=== PATIENT | male | born 1980 ===

== ENCOUNTER 2016-12-20 19:08 | Emergency (ER) | payer OTHER ==
[2016-12-20 19:16] VITALS: BMI 29.6
--- NOTE | 2016-12-20 20:02 | ED PDOC ---
Arrival/HPI - General Chief Complaint: Abdominal Pain Time Seen by Provider: 12/20/16 19:35 Historian: Patient - History of Present Illness Narrative History of Present Illness (Text): 12/20/16 23:57 36 yo M presents with 3 day h/o diarrhea with no abdominal pain or vomiting. States that his symptoms started after eating some "bad food." otherwise denies any fever, chills, urinary symptoms, melena, hematochezia, recent travel, sick contacts, recent antibiotic use, history of abdominal surgeries. Otherwise has no additional complaints. Patient states he is tolerating by mouth fluids well. Past Medical History - Provider Review Nursing Documentation Reviewed: Yes - Psychiatric Hx Substance Use: No - Surgical History Other/Comment: Right knee sx Family/Social History - Physician Review Nursing Documentation Reviewed: Yes Family/Social History: No Known Family HX Smoking Status: Current Some Days Smoker Hx Alcohol Use: Yes Frequency of alcohol use: Socially Hx Substance Use: No Allergies/Home Meds Allergies/Adverse Reactions: Allergies peanut Allergy (Verified 12/20/16 19:16) URTICARIA Home Medications: Home Meds Medication Instructions Recorded Confirmed No Known Home Med 12/20/16 12/20/16 Review of Systems - Review of Systems Constitutional: Normal. absent: Fatigue, Weight Change, Fevers Respiratory: Normal. absent: SOB, Cough, Sputum Cardiovascular: Normal. absent: Chest Pain, Palpitations, Edema Gastrointestinal: Normal, Diarrhea. absent: Abdominal Pain, Vomiting, Appetite Changes Musculoskeletal: Normal. absent: Arthralgias, Back Pain Skin: Normal. absent: Rash, Pruritis, Skin Lesions Physical Exam - Physical Exam Narrative Physical Exam (Text): 12/20/16 23:59 GENERAL APPEARANCE: Patient is awake, alert, oriented x 3, in no acute distress. SKIN: Warm, dry; (-) cyanosis. EYES: (-) conjunctival pallor, (-) scleral icterus. ENMT: Mucous membranes dry. NECK: (-) tenderness, (-) stiffness, (-) lymphadenopathy. CHEST AND RESPIRATORY: (-) rales, (-) rhonchi, (-) wheezes; breath sounds equal bilaterally. HEART AND CARDIOVASCULAR: (-) irregularity; (-) murmur, (-) gallop. ABDOMEN AND GI: (-) distention. Bowel sounds active; (-) tenderness, (-) guarding, (-) rebound, (-) palpable masses, (-) CVA tenderness. EXTREMITIES: (-) deformity, (-) edema, (+) distal pulses. NEURO AND PSYCH: Mental status as above; (-) focal findings. Vital Signs Temp Pulse Resp BP Pulse Ox 12/20/16 20:20 97.1 F L 74 20 124/85 100 12/20/16 19:13 98.8 F 118 H 18 129/86 98 Medical Decision Making ED Course and Treatment: 12/20/16 20:00 36 yo M presents with 3 day h/o diarrhea with no abdominal pain or vomiting. Physical exam is otherwise within normal. Patient advised to drink plenty of fluids, BRAT diet and to follow up with the clinic in 1-2 days without fail. Return to the emergency room at any time for any new or worsening symptoms. Patient states he fully agrees with and understands discharge instructions. States that he agrees with the plan and disposition. Verbalized and repeated discharge instructions and plan. I have given the patient opportunity to ask any additional questions. - PA / SENIOR INTERACTIVE DEVELOPER / Resident Statement MD/DO has reviewed & agrees with the documentation as recorded. Disposition/Present on Arrival - Present on Arrival Any Indicators Present on Arrival: No History of DVT/PE: No History of Uncontrolled Diabetes: No Urinary Catheter: No History of Decub. Ulcer: No History Surgical Site Infection Following: None - Disposition Have Diagnosis and Disposition been Completed?: Yes Diagnosis: Diarrhea Disposition: HOME/ ROUTINE Disposition Time: 20:01 Patient Plan: Discharge Condition: STABLE Discharge Instructions (ExitCare): Acute Diarrhea (ED) Print Language: BAHRAINI Additional Instructions: Thank you for letting us take care of you today. You were treated for diarrhea. The emergency medical care you received today was directed at your acute symptoms. It may take several days for your symptoms to resolve. Return to the Emergency Department if your symptoms worsen, do not improve, or if you have any other problems. Please contact your doctor in 2 days for re-evaluation and follow up / or call one of the physicians/clinics you have been referred to that are listed on the Patient Visit Information form that is included in your discharge packet. Bring any paperwork you were given at discharge with you along with any medications you are taking to your follow up visit. Our treatment cannot replace ongoing medical care by a primary care provider (PCP) outside of the emergency department. Thank you for allowing the [facility] team to be part of your care today. Referrals: [facility] Amelia Req, [Primary Care Provider] - Follow up with primary [facility] [Outside] - Follow up with primary Forms: WORK NOTE
[2016-12-20 20:22] VITALS: BP 124/85; PULSE 74; RESP 20; TEMP 97.1; O2SAT 100
== END 2016-12-20 20:24 | disposition home or self-care (01) ==
LOC: ED 19:08
DX: R19.7 Diarrhea, unspecified (principal); F17.210 Nicotine dependence, cigarettes, uncomplicated; Z91.010 Allergy to peanuts

== ENCOUNTER 2016-12-31 14:44 | Emergency (ER) | payer OTHER ==
--- NOTE | 2016-12-31 14:51 | ED PDOC ---
Arrival/HPI - General Historian: Patient - History of Present Illness Time/Duration: Prior to Arrival Symptom Onset: Sudden Symptom Course: Improving Activities at Onset: Other (getting ready for work) Context: Home - General Chief Complaint: Allergic Reaction Time Seen by Provider: 12/31/16 14:46 - History of Present Illness Narrative History of Present Illness (Text): 36 M with no PMH presents to ED with complaint of pruritis and hives. Patient stated that he woke up this morning and noticed that his head was itchy. He went to the bathroom and looked in the mirror when he noticed that he had swollen bumps all over his head. Patient stated that it was sudden onset. Patient had similar episode once before. He went to ED and was diagnosed with peanut allergy. Patient denies eating peanuts or anything new. He has not changed any soap, shampoo, deodorant, cologne, detergent, etc. Patient is under more stress than usual for work. He states the lesions have improved since onset. Denies fevers/chills, cp, sob, palpitations, swelling of mouth/throat, wheezing, cough, abd pain, n/v/d, numbness/tingling. (Martín Cox) Past Medical History - Provider Review Nursing Documentation Reviewed: Yes - Travel History Have you recently traveled outside [place] w/in the past 3 mons?: No - Past History Past History: No Previous - Psychiatric Hx Substance Use: No - Surgical History Other/Comment: Right knee sx Family/Social History - Physician Review Nursing Documentation Reviewed: Yes Family/Social History: Neoplasm/Cancer Smoking Status: Current Some Days Smoker Hx Alcohol Use: Yes Hx Substance Use: No Allergies/Home Meds Allergies/Adverse Reactions: Allergies peanut Allergy (Verified 12/31/16 14:52) URTICARIA Review of Systems - Review of Systems Constitutional: absent: Fatigue, Weight Change, Fevers, Night Sweats Eyes: absent: Vision Changes, Photophobia ENT: absent: Hearing Changes, Sore Throat Respiratory: absent: SOB, Wheezing Cardiovascular: absent: Chest Pain, Palpitations, Edema, Calf Pain, Syncope Gastrointestinal: absent: Abdominal Pain, Constipation, Nausea, Vomiting Genitourinary Male: absent: Dysuria, Frequency Musculoskeletal: absent: Arthralgias, Back Pain, Neck Pain, Myalgias Skin: Pruritis, Other (hives). absent: Laceration, Cellulitis Neurological: absent: Headache, Dizziness, Focal Weakness Endocrine: absent: Diaphoresis, Polyuria, Polydipsia Hemo/Lymphatic: absent: Adenopathy, Easy Bleeding, Easy Bruising Psychiatric: absent: Anxiety, Depression, Suicidal Ideation Physical Exam Vital Signs Reviewed: Yes Temperature: Afebrile Blood Pressure: Normal Pulse: Regular Respiratory Rate: Normal Appearance: Positive for: Well-Appearing, Non-Toxic, Uncomfortable Pain Distress: None Mental Status: Positive for: Alert and Oriented X 3 - Systems Exam Head: Present: Normocephalic, Other (hives) Pupils: Present: PERRL Conjunctiva: Present: Normal Mouth: Present: Moist Mucous Membranes Pharnyx: No: ERYTHEMA, EXUDATE, TONSILS ENLARGED, Peritonsilar Swelling, Uvular Deviation, Muffled/Hoarse Voice, Strider, Soft Palate/Uvular Edema Nose (External): Present: Atraumatic Nose (Internal): Present: Normal Inspection Neck: Present: Normal Range of Motion Respiratory/Chest: Present: Clear to Auscultation, Good Air Exchange. No: Respiratory Distress, Accessory Muscle Use, Wheezes, Rales, Rhonchi Cardiovascular: Present: Regular Rate and Rhythm, Normal S1, S2, Peripheal Pulses Present Abdomen: Present: Normal Bowel Sounds. No: Tenderness, Distention, Peritoneal Signs, Rebound, Guarding Back: No: CVA Tenderness Upper Extremity: Present: Normal ROM, NORMAL PULSES, Neurovascularly Intact, Capillary Refill < 2s Lower Extremity: Present: NORMAL PULSES, Normal ROM, Neurovascularly Intact, Capillary Refill < 2 s Neurological: Present: GCS=15, CN II-XII Intact, Speech Normal, Motor Func Grossly Intact, Normal Sensory Function Skin: Present: Warm, Dry, Other (hives on head) Lymphatic: No: Cervical Adenopathy, Axillary Adenopathy, Inguinal Adenopathy Psychiatric: Present: Alert, Oriented x 3, Normal Insight, Normal Concentration , Normal Affect, Normal Mood Vital Signs Temp Pulse Resp BP Pulse Ox 12/31/16 14:54 99.1 F 88 19 141/81 97 Medical Decision Making ED Course and Treatment: 12/31/16 16:26 Patient seen and examined with resident Came up with treatment and disposition plan with resident (Phil Mendez) Patient was evaluated and determined to have hives/uticaria. Symptoms localized to affected area. No evidence of airway swelling, wheezing, or systemic signs present. Patient given rx for pepcid, benadryl, and medrol dose pack. Patient instructed to take as prescribed and follow up with PMD. Patient also given referral for [facility]. All instructions were thoroughly discussed with patient. He verbalized understanding and agreement. (Martín Cox) Disposition/Present on Arrival - Present on Arrival Any Indicators Present on Arrival: No History of DVT/PE: No History of Uncontrolled Diabetes: No Urinary Catheter: No History of Decub. Ulcer: No History Surgical Site Infection Following: None - Disposition Have Diagnosis and Disposition been Completed?: Yes Disposition Time: 15:12 Patient Plan: Discharge - Disposition Diagnosis: Hives Disposition: HOME/ ROUTINE Condition: STABLE Discharge Instructions (ExitCare): Urticaria (ED) Additional Instructions: Thank you for letting us take care of you today. Your provider was Dr. Cox. You were treated for Hives. The emergency medical care you received today was directed at your acute symptoms. If you were prescribed any medication , please fill it and take as directed. It may take several days for your symptoms to resolve. Return to the Emergency Department if your symptoms worsen , do not improve, or if you have any other problems. Please contact your doctor or call one of the physicians/clinics you have been referred to that are listed on the Patient Visit Information form that is included in your discharge packet. Bring any paperwork you were given at discharge with you along with any medications you are taking to your follow up visit. Our treatment cannot replace ongoing medical care by a primary care provider (PCP) outside of the emergency department. Thank you for allowing the [facility] team to be part of your care today. If you had an X-Ray or CT scan: A Radiologist will review the ED reading if any change in treatment is needed we will contact you. If you had a blood, urine, or wound culture: It will take several days for the results, if any change in treatment is needed we will contact you. If you had an STI test: It will take 48 hours for the results. Please call after 1 week if you have not heard back. Take Pepcid, Benadryl, Medrol dospak as prescribed Follow up with PMD within 2-3 days Please return to ED if symptoms persist or condition worsens Prescriptions: DiphenhydrAMINE [Benadryl] 50 mg PO Q6 #30 cap Famotidine [Pepcid] 20 mg PO BID #30 tab Methylprednisolone [Medrol Dose Pack (21 tabs)] See Taper PO DAILY #21 mg Referrals: Leighann Gomez MD [Staff Provider] - Follow up with primary
[2016-12-31 14:52] VITALS: BMI 29.9
[2016-12-31 14:55] VITALS: BP 141/81; PULSE 88; RESP 19; TEMP 99.1; O2SAT 97
== END 2016-12-31 15:47 | disposition home or self-care (01) ==
LOC: ED 14:44
DX: L50.9 Urticaria, unspecified (principal)

== ENCOUNTER 2017-02-12 16:23 | Emergency (ER) | payer SELFPAY ==
[2017-02-12 16:37] VITALS: BP 128/84; PULSE 94; TEMP 98.6; O2SAT 98; BMI 28.7
[2017-02-12] MEDS ORDERED: TDAP Vaccine 0.5 mL Syr IM ONE (16:41)
--- NOTE | 2017-02-12 16:46 | ED PDOC ---
Arrival/HPI - General Chief Complaint: Abnormal Skin Integrity Time Seen by Provider: 02/12/17 16:31 Historian: Patient - History of Present Illness Narrative History of Present Illness (Text): 02/12/17 16:42 36 y/o male, no significant pmh, nkda, last tetanus doesn't remember, c/o lt. hand finger laceration by the glass x 2 hours. Pt. stated that he was cleaning the glass cup, broke the cup, sustained the laceration, no numbness or tingling , no difficulty moving the injured lt. hand 2nd digit, no other medical or psychological complaints. Past Medical History - Provider Review Nursing Documentation Reviewed: Yes - Past History Past History: No Previous - Infectious Disease Hx of Infectious Diseases: None - Cardiac Hx Cardiac Disorders: No - Psychiatric Hx Substance Use: No - Surgical History Other/Comment: Right knee sx - Anesthesia Hx Anesthesia: Yes Hx Anesthesia Reactions: No Family/Social History - Physician Review Nursing Documentation Reviewed: Yes Family/Social History: Unknown Family HX Smoking Status: Current Some Days Smoker Hx Alcohol Use: Yes Hx Substance Use: No Allergies/Home Meds Allergies/Adverse Reactions: Allergies peanut Allergy (Verified 02/12/17 16:29) URTICARIA Review of Systems - Review of Systems Constitutional: absent: Fatigue, Fevers Eyes: absent: Vision Changes ENT: absent: Hearing Changes Respiratory: absent: SOB, Cough Cardiovascular: absent: Chest Pain Gastrointestinal: absent: Abdominal Pain, Nausea, Vomiting Skin: Laceration. absent: Rash, Pruritis, Skin Lesions, Abscess, Ulcer Neurological: absent: Headache, Dizziness, Gait Changes Psychiatric: absent: Anxiety, Depression, Suicidal Ideation Physical Exam Vital Signs Reviewed: Yes Vital Signs Temp Pulse Resp BP Pulse Ox 02/12/17 17:34 18 98 02/12/17 17:06 98.6 F 94 H 16 98 02/12/17 16:25 98.6 F 94 H 16 128/84 98 Temperature: Afebrile Blood Pressure: Normal Pulse: Regular Respiratory Rate: Normal Appearance: Positive for: Well-Appearing, Non-Toxic, Comfortable Pain Distress: Mild Mental Status: Positive for: Alert and Oriented X 3 - Systems Exam Head: Present: Atraumatic, Normocephalic Pupils: Present: PERRL Extroacular Muscles: Present: EOMI Conjunctiva: Present: Normal Mouth: Present: Moist Mucous Membranes Neck: Present: Normal Range of Motion Respiratory/Chest: Present: Clear to Auscultation, Good Air Exchange. No: Respiratory Distress, Accessory Muscle Use Cardiovascular: Present: Regular Rate and Rhythm, Normal S1, S2. No: Murmurs Abdomen: Present: Normal Bowel Sounds. No: Tenderness, Distention, Peritoneal Signs Back: Present: Normal Inspection Upper Extremity: Present: Normal Inspection. No: Cyanosis, Edema Lower Extremity: Present: Normal Inspection, Other (Lt. hand: visible 2nd digit proximal phalanx dorsum aspect approx. 2cm superficial to intermediate depth laceration, no deformity, no visible foreign bodies, FROM without limitation, sensation intact, motor 5/5, +radial pulse, no difficulty flexion/extension of the injured finger/hand, neurovascular intact. ). No: Edema Neurological: Present: GCS=15, CN II-XII Intact, Speech Normal Skin: Present: Warm, Dry, Normal Color. No: Rashes Psychiatric: Present: Alert, Oriented x 3, Normal Insight, Normal Concentration Medical Decision Making ED Course and Treatment: 02/12/17 16:46 -tdap/keflex/motrin 02/12/17 17:28 -xray show no fracture/dislocation/foreign bodies. -Sensation intact, motor 5/5, wound irrigate with 1000cc of normal saline, clean with betadine, 1% lidocaine injected approx. 0.5cc with local anesthetic obtained, wound explored and no visible foreign bodies, 5-0 nylon made suture, hemostasis obtained, bacitracin applized, gauze dressing, sensation intact, motor 5/5. -Discharge home with keflex, bacitracin oinment, motrin, keep the dressing dry and clean for 48 hours, sutures need to be removed by day 11-12, avoid strenuous exercise or activity, follow up with your own pmd and hand specialist within 2 days, return to the ER for any new or worsening signs or symptoms. - RAD Interpretation Radiology Orders: 02/12/17 16:41 HAND LEFT 3 VIEWS ROUTINE [RAD] Stat no fracture/dislocation/foreign bodies. Roaster Supervisor: Radiologist - Medication Orders Current Medication Orders: Discontinued Medications Cephalexin Monohydrate (Keflex) 500 mg PO STAT STA PRN Reason: Protocol Stop: 02/12/17 16:42 Last Admin: 02/12/17 16:57 Dose: 500 mg Ibuprofen (Motrin Tab) 600 mg PO STAT STA Stop: 02/12/17 16:42 Last Admin: 02/12/17 16:57 Dose: 600 mg Tetanus/Reduced Diphtheria/Acell Pertussis (Boostrix Vaccine Inj) 0.5 ml IM .ONCE ONE Stop: 02/12/17 16:42 Last Admin: 02/12/17 17:16 Dose: 0.5 ml - PA / DENTAL RESIDENT / Resident Statement MD/DO has reviewed & agrees with the documentation as recorded. Disposition/Present on Arrival - Present on Arrival Any Indicators Present on Arrival: No History of DVT/PE: No History of Uncontrolled Diabetes: No Urinary Catheter: No History of Decub. Ulcer: No History Surgical Site Infection Following: None - Disposition Have Diagnosis and Disposition been Completed?: Yes Diagnosis: Hand laceration Disposition: HOME/ ROUTINE Disposition Time: 17:01 Patient Plan: Discharge Condition: IMPROVED Additional Instructions: -Discharge home with keflex, bacitracin oinment, motrin, keep the dressing dry and clean for 48 hours, sutures need to be removed by day 11-12, avoid strenuous exercise or activity, follow up with your own pmd and hand specialist within 2 days, return to the ER for any new or worsening signs or symptoms. Prescriptions: Bacitracin Ointment [Bacitracin] 1 appful TOP BID #15 g Cephalexin [cephalexin] 500 mg PO TID #27 cap Ibuprofen [Motrin] 600 mg PO QID PRN #24 tab PRN Reason: Other Referrals: PCP,NO [Primary Care Provider] - Follow up with primary Tristan Mahajan MD [Staff Provider] - Follow up with primary Forms: [employer] (Arabic), WORK NOTE
[2017-02-12 17:35] VITALS: RESP 18
--- NOTE | 2017-02-12 18:13 | RAD ---
PROCEDURE: Left Hand Radiographs. HISTORY: lt. hand 2nd MCPJ laceration by glass COMPARISON: None. FINDINGS: BONES: Bone alignment and mineralization are normal. No acute fracture. JOINTS: Normal. No osteoarthritic changes. SOFT TISSUES: Normal. There is no radiopaque foreign body. OTHER FINDINGS: None. IMPRESSION: No acute fracture, dislocation or radiopaque foreign body.
== END 2017-02-12 17:35 | disposition home or self-care (01) ==
LOC: ED 16:23
DX: S61.211A Laceration without foreign body of left index finger without damage to nail, initial encounter (principal); W25.XXXA Contact with sharp glass, initial encounter; Z23 Encounter for immunization

== ENCOUNTER 2017-04-28 03:51 | Emergency (ER) | payer SELFPAY ==
[2017-04-28 03:57] VITALS: BMI 30.1
[2017-04-28 03:58] VITALS: RESP 17; O2SAT 98
--- NOTE | 2017-04-28 04:07 | ED PDOC ---
Arrival/HPI - General Chief Complaint: ENT Problem Time Seen by Provider: 04/28/17 03:53 Historian: Patient - History of Present Illness Narrative History of Present Illness (Text): 04/28/17 04:24 A 36 year old male with no significant past medical history, presents to the emergency department complaining of sore throat discomfort. Patient states it hurts when swallowing, no difficulty swallowing. Patient also with side complaint of discomfort on plantar aspect of right foot area. He states he has been walking and standing a lot. Denies any history of trauma. Patient denies any fever, chills or any other complaints at this time. Symptom Onset: Sudden Symptom Course: Unchanged Activities at Onset: Rest Context: Home Past Medical History - Provider Review Nursing Documentation Reviewed: Yes - Past History Past History: No Previous - Infectious Disease Hx of Infectious Diseases: None - Cardiac Hx Cardiac Disorders: No - Psychiatric Hx Substance Use: No - Surgical History Hx Orthopedic Surgery: Yes (rem cyst rt knee 2009) Other/Comment: Right knee sx - Anesthesia Hx Anesthesia: Yes Hx Anesthesia Reactions: No Family/Social History - Physician Review Nursing Documentation Reviewed: Yes Family/Social History: No Known Family HX Smoking Status: Light Smoker < 10 Cigarettes Daily Hx Alcohol Use: Yes Frequency of alcohol use: Socially Hx Substance Use: No Allergies/Home Meds Allergies/Adverse Reactions: Allergies No Known Allergies Allergy (Verified 04/28/17 04:01) Review of Systems - Physician Review All systems were reviewed & negative as marked: Yes - Review of Systems Constitutional: absent: Fevers, Other (chills) ENT: Sore Throat Musculoskeletal: Other (right foot pain) Physical Exam Vital Signs Reviewed: Yes Vital Signs Temp Pulse Resp BP Pulse Ox 04/28/17 03:57 97.8 F 86 17 120/84 98 Temperature: Afebrile Blood Pressure: Normal Pulse: Regular Respiratory Rate: Normal Appearance: Positive for: Well-Appearing, Non-Toxic, Comfortable Pain Distress: None Mental Status: Positive for: Alert and Oriented X 3 - Systems Exam Head: Present: Atraumatic, Normocephalic Pupils: Present: PERRL Extroacular Muscles: Present: EOMI Conjunctiva: Present: Normal Mouth: Present: Moist Mucous Membranes Pharnyx: Present: ERYTHEMA (posterior pharynx and tonsils) Neck: Present: Normal Range of Motion Respiratory/Chest: Present: Clear to Auscultation, Good Air Exchange. No: Respiratory Distress, Accessory Muscle Use Cardiovascular: Present: Regular Rate and Rhythm, Normal S1, S2. No: Murmurs Abdomen: Present: Normal Bowel Sounds. No: Tenderness, Distention, Peritoneal Signs Back: Present: Normal Inspection Upper Extremity: Present: Normal Inspection. No: Cyanosis, Edema Lower Extremity: Present: Normal Inspection, Normal ROM, Neurovascularly Intact , Other (no swelling or deformities to right foot; no point tenderness to plantar aspect of foot). No: Edema Neurological: Present: GCS=15, CN II-XII Intact, Speech Normal Skin: Present: Warm, Dry, Normal Color. No: Rashes Psychiatric: Present: Alert, Oriented x 3, Normal Insight, Normal Concentration Medical Decision Making ED Course and Treatment: 04/28/17 04:21 Impression: A 36 year old male with sore throat discomfort and right foot pain. Differential Diagnosis included but are not limited to: pharyngitis and plantar fasciitis Plan: -- Amoxil, Motrin -- Reassess and disposition Prior Visits: Notes and results from previous visits were reviewed. Patient was last seen in the emergency department on 02/12/17 for evaluation of left hand finger laceration. Progress Notes: On re-evaluation, patient feels better and is in no acute distress. I have discussed the results and plan with the patient, who expresses understanding. Patient in agreement with plan to be discharged home. Patient is stable for discharge. Patient was instructed to follow up with physician or return if symptoms worsen or new concerning symptoms arise. - Medication Orders Current Medication Orders: Discontinued Medications Amoxicillin (Amoxil 500 Mg Cap) 500 mg PO STAT STA PRN Reason: Protocol Stop: 04/28/17 04:07 Last Admin: 04/28/17 04:13 Dose: 500 mg Ibuprofen (Motrin Tab) 600 mg PO STAT STA Stop: 04/28/17 04:07 Last Admin: 04/28/17 04:15 Dose: 600 mg MAR Pain/Vitals Document 04/28/17 04:15 IT (Rec: 04/28/17 04:15 IT [facility] [place]-[id number]) Pain Reassessment Is This A Pain ReAssessment? No Sleep Is patient sleeping during reassessment? No Presence of Pain Presence of Pain Yes Pain Scale Used Pain Scale Used Numeric Location Left, Right or Bilateral Left Pain Location Body Site Foot - Scribe Statement The provider has reviewed the documentation as recorded by the Gregorioibyeison Blount Provider Scribe Attestation: All medical record entries made by the Scribe were at my direction and personally dictated by me. I have reviewed the chart and agree that the record accurately reflects my personal performance of the history, physical exam, medical decision making, and the department course for this patient. I have also personally directed, reviewed, and agree with the discharge instructions and disposition. Disposition/Present on Arrival - Present on Arrival Any Indicators Present on Arrival: No History of DVT/PE: No History of Uncontrolled Diabetes: No Urinary Catheter: No History of Decub. Ulcer: No History Surgical Site Infection Following: None - Disposition Have Diagnosis and Disposition been Completed?: Yes Diagnosis: Pharyngitis, Plantar fasciitis of right foot Disposition: HOME/ ROUTINE Disposition Time: 04:08 Patient Plan: Discharge Patient Problems: Current Active Problems Problem Status Onset Pharyngitis Acute Plantar fasciitis of right foot Acute Condition: GOOD Discharge Instructions (ExitCare): Pharyngitis (ED), Plantar Fasciitis (ED) Additional Instructions: Take medication as prescribed/drink cool liquids/wear proper arched shoes/avoid prolonged standing/follow up with your doctor this week Prescriptions: Amoxicillin [Amoxil 500 mg Cap] 500 mg PO TID #21 cap Naproxen [Naprosyn] 500 mg PO BID PRN #14 tab PRN Reason: Pain Forms: [employer] ([place])
[2017-04-28 04:36] VITALS: BP 132/70; PULSE 89; TEMP 97.9
== END 2017-04-28 04:39 | disposition home or self-care (01) ==
LOC: ED 03:51
DX: M72.2 Plantar fascial fibromatosis (principal); J02.9 Acute pharyngitis, unspecified; F17.210 Nicotine dependence, cigarettes, uncomplicated